=== PATIENT | male | born 1940 | race Caucasian/White ===

== ENCOUNTER → 2019-05-24 | Outpatient (CLI) | payer MEDICARE ==
[2019-05-24] VITALS (8 sets, daily range): BP systolic 116–165; BP diastolic 69–80
[~2019-05-24] VITALS: Ht 182.9 cm; Wt 87.2 kg
[~2019-05-24] MED LIST: ASPIR 8181 MG PO; LIPITOR40 MG PO; NITROGLYCERIN0.4 MG SUBLING; SYNTHROID137 MC1 PO; THERA-M1 EAC1 PO; TYLENOL325 MG PO
[2019-05-24 08:10] LABS: HEMATOCRIT 42.1 % (42.0-52.0); HEMOGLOBIN 14.3 gm/dL (14.0-18.0); MCH 34.3 pg (26.0-34.0); MCV 100.7 fL (80.0-100.0); MPV 7.6 fl. (7.2-11.1); RBC 4.18 mil/uL (4.50-6.00); RDW-CV 13.8 % (10.5-14.5)
[2019-05-24 08:24] LABS: POTASSIUM 4.1 mmol/L (3.5-5.1)
[2019-05-24 08:27] LABS: APTT 26.6 Seconds (25.0-31.3); PROTIME 10.5 Seconds (9.20-11.50)
[2019-05-24 08:29] LABS: ALBUMIN 3.8 g/dL (3.4-5.0); TOTAL BILIRUBIN 0.4 mg/dL (<0.1-1.0); TOTAL PROTEIN 7.3 g/dL (6.4-8.2)
--- NOTE | 2019-05-24 11:27 | EKG ---
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 : 1940 Requested By: Nasim Waters Order Number: [id number] Reading MD: Nasim Waters Measurements Intervals Palmer Rate: 55 P: -23 MO: 193 QRS: -64 QRSD: 103 T: 29 QT: 441 QTc: 422 Interpretive Statements Sinus rhythm Left anterior fascicular block Abnormal R-wave progression, late transition Minimal ST elevation, anterior leads No previous ECG available for comparison Electronically Signed On 05-24-2019 11:27:09 CDT by Nasim Waters [email or web address] <ELECTRONICALLY SIGNED> By: Nasim Waters MD, [facility] 05/24/19 1127 0849 Nasim Waters MD, FACC /EPI
--- NOTE | 2019-05-24 17:02 | CARD ---
[address] [address] CARDIAC CATH REPORT Name: ALINE OLIVAREZ Room: [facility]#: [id number] Admission: 05/24/19 Attend Phys: Nasim Waters MD, F Discharge: Date of : 44 Report #: [id number] THIS REPORT FOR: //name// APPROVED REPORT Study performed: 05/24/2019 09:31:30 Patient Details Patient Status: Out-Patient Room #: The patient is a 78 year-old male Event Personnel Nasim Waters MD, Peanut Grader; Joshua Nicholson RN, Baggage Agent; Payal Banda RN, Monitor; ASHER Montelongo, Scrub; TONYA Dubois, Scrub Procedures Performed Left Heart Cath w/wo Coronaries, Access- Aterial: Right Radial Artery, Hemostasis with Radial Band. Indication Chest pain Risk Factors Hypercholesterolemia Admission/Lab Medications/Medications given during procedure Heparin Unfract., Aspirin 81mg given just prior to procedure Procedure Narrative The patient was brought electively to the Cardiac Catheterization Laboratory and was prepped and draped in a sterile manner. The right wrist was infiltrated with 2% Lidocaine subcutaneous anesthesia. A 6Fr Slender sheath was inserted into the right radial artery. Coronary angiography was performed using coronary diagnostic catheters. The right coronary system was accessed and visualized with a Diagnostic JR4 catheter. The left coronary system was accessed and visualized with a Diagnostic JL4 catheter. The left ventricle was accessed and visualized with a Diagnostic PIGTAIL catheter. Left ventricular/Aortic Valve gradient assessed via catheter pullback. Left ventriculogram was performed in [place] projection. Closure device was deployed with a Fr vascband. The patient tolerated the procedure well and there were no complications associated with the procedure. [place] [address] CARDIAC CATH REPORT Name: SHERALINE Maninder Room: [facility]#: [id number] Admission: 05/24/19 Attend Phys: Nasim Waters MD, F Discharge: Date of : 44 Report #: [id number] Intraoperative Conscious Sedation Sedation start time: 10:09 Case end Time: 10:44 Fentanyl 2.0 mcg Versed 25.0 mg Fluoro Time: 3.7 minutes Dose: DAP 08843 cGycm2 948 mGy Contrast Type and Amount: 110ml Omnipaque 320 Coronary Angiography The patient's coronary anatomy is co- dominant. Diagnostic Cath Left Main 0% stenosis LAD 50% proximal stenosis Diagonal 1 small vessel with 80% ostial stenosis Circumflex 0% stenosis Right Coronary 0% stenosis RPLV 100%. Small vessel with slow flow and staining noted. Left Ventriculography The left ventricle is normal in size with normal contractility. The left ventricular ejection fraction is estimated to be 60-65%. Left ventricular wall motion abnormalities are not present. There is no mitral insufficiency. Hemodynamics The aortic pressure is 101/57 mmHg with a mean of 54 mmHg. The left ventricular pressure is 104/-2 mmHg with a mean of mmHg. The left ventricular end diastolic pressure is 10 mmHg. There was no gradient across the aortic valve upon pullback. Pullback from the left ventricle to the aorta revealed no gradient across the aortic valve. Conclusion 1. 50% stenosis of the proximal lad 2. 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 3. LVEF 60-65% [place] [address] CARDIAC CATH REPORT Name: ALINE OLIVAREZ [id number] Admission: 05/24/19 Attend Phys: Nasim Waters MD, F Discharge: Date of : 44 Report #: [id number] Recommendations Aggressive Medical Therapy <ELECTRONICALLY SIGNED> By: Nasim Waters MD, FACC 05/24/191701 01 1702Ddeb Waters MD, FACC /INF
== END | disposition home or self-care (01) ==
LOC: M.CL 07:35
PROVIDERS: Internal Medicine Cardiovascular Disease
DX: R07.89 Other chest pain (principal); I25.10 Atherosclerotic heart disease of native coronary artery without angina pectoris; K21.9 Gastro-esophageal reflux disease without esophagitis; E03.9 Hypothyroidism, unspecified; Z79.82 Long term (current) use of aspirin; Z79.899 Other long term (current) drug therapy